=== PATIENT | male | born 1960 | race Caucasian/White ===

== ENCOUNTER 2019-10-09 06:53 | Inpatient (IN) ==
[~2019-10-09 06:53] MED LIST: ceFAZolin 1,000 MG in SYRINGE 1 EACH IV ONE
[2019-10-09] MEDS ORDERED: HEPARIN 5,000 UNIT/1 ML VIAL ONE (07:47)
[2019-10-09] MEDS ORDERED: LACTATED RINGERS 1,000 ML IV SCH (08:00)
[2019-10-09] MEDS ORDERED: ceFAZolin 1,000 MG VIAL ONE (08:10)
[2019-10-09] MEDS ORDERED: LIDOCAINE 2% TOP JELLY 20 ML VIAL INTRAURETH ONE (09:41)
[2019-10-09] MEDS ORDERED: HYDROmorphone 2 MG/1 ML VIAL IV PRN (13:09)
[2019-10-09] MEDS ORDERED: DESFLURANE 1 UNIT/15 MINUTE INH ONE (13:23)
[2019-10-09] MEDS ORDERED: fentaNYL 100 MCG/2 ML VIAL ONE (13:23)
[2019-10-09] MEDS ORDERED: fentaNYL 250 MCG/5 ML VIAL ONE (13:23)
[2019-10-09] MEDS ORDERED: propofoL 200 MG/20 ML VIAL IV ONE (13:23)
[2019-10-09] MEDS ORDERED: PHENYLEPHRINE DRIP 20 MG/250 ML PREMIX IV ONE (13:23)
[2019-10-09] MEDS ORDERED: HEPARIN 10,000 UNIT/10 ML VIAL ONE (13:23)
[2019-10-09] MEDS ORDERED: LIDOCAINE 2% 5 ML VIAL ONE (13:23)
[2019-10-09] MEDS ORDERED: ONDANSETRON 4 MG/2 ML VIAL ONE (13:23)
[2019-10-09] MEDS ORDERED: ROCURONIUM 100 MG/10 ML VIAL IV ONE (13:24)
[2019-10-09] MEDS ORDERED: PHENYLEPHRINE 1 MG/10 ML SYRINGE IV ONE (13:24)
[2019-10-09] MEDS ORDERED: LACTATED RINGERS 1,000 ML IV ONE (13:24)
[2019-10-09] MEDS ORDERED: ETOMIDATE 40 MG/20 ML VIAL IV ONE (13:24)
[2019-10-09] MEDS: LACTATED RINGERS 1,000 ML IV SCH ×3 (14:23→20:47)
[2019-10-09 14:44] LABS: Hematocrit 42.9 VOL% (42.0-52.0); Hemoglobin 14.4 GM/DL (14.0-18.0)
[2019-10-09] MEDS: PROMETHAZINE 25 MG TABLET PO SCH ×2 (16:25→19:57)
[2019-10-09] MEDS: KETOROLAC 10 MG TABLET PO SCH ×2 (16:25→19:55)
[2019-10-10] MEDS: PROMETHAZINE 25 MG TABLET PO SCH ×2 (01:41→08:28)
[2019-10-10] MEDS: KETOROLAC 10 MG TABLET PO SCH ×2 (01:41→08:28)
[2019-10-10 03:19] LABS: Hematocrit 40.3 VOL% (42.0-52.0); Hemoglobin 13.2 GM/DL (14.0-18.0)
[2019-10-10 03:35] LABS: Calcium 8.4 MG/DL (8.5-10.1); Osmolality,Calculated 270.1 MOS/KG (273-304)
[2019-10-10] MEDS: LACTATED RINGERS 1,000 ML IV SCH (06:00)
[2019-10-10 08:39] VITALS: BP 120/71
[2019-10-10] MEDS ORDERED: ASPIRIN EC 81 MG TABLET PO SCH (09:00)
== END 2019-10-10 09:45 | disposition home or self-care (01) | DRG 254 ==
LOC: N.SDSINP 06:53 → N.4E 14:14
PROVIDERS: ADMIT Surgery; ATTEND Surgery

== ENCOUNTER 2020-07-28 07:00 | Inpatient (IN) ==
[2020-07-28] MEDS ORDERED: DEXTROSE 50% 25 GM/50 ML VIAL IV PRN (09:51)
[2020-07-28] MEDS ORDERED: GLUCAGON 1 MG VIAL IM PRN (09:51)
[2020-07-28 11:29] LABS: Allen Test Positive; Pt O2 Delivery Device Room Air
[2020-07-28] MEDS ORDERED: SODIUM CHLORIDE 0.9% 1,000 ML IV SCH (12:00)
[2020-07-28 12:16] LABS: Basophils # 0.1 10*3/uL (0.0-0.2); Basophils % 0.6 % (0.0-0.8); Eosinophils # 0.1 10*3/uL (0.0-0.87); Eosinophils % 1.4 % (0.00-10.9); Hemoglobin 15.3 GM/DL (14.0-18.0); Immature Granulocytes % 0.2 %; Immature Granulocytes Absolute 0.02 #; Lymphocytes # 2.7 10*3/uL (1.4-4.0); Lymphocytes % 30.3 % (21.2-54.2); Mean Corpuscular Volume 87.5 FL (87-102); Mean Platelet Volume 9.8 FL (9.6-12.0); Monocytes % 6.8 % (1.7-12.7); Neutrophils % 60.7 % (38.7-73.9); Platelet Count 316 T/CUMM (130-400); Red Blood Count 5.14 MC/CUMM (3.8-5.5); Red Cell Distribution Width 13.2 % (9.3-17.3); White Blood Count 8.7 T/CUMM (4-12)
[2020-07-28 12:37] LABS: ABG Base Excess 2.1 MMOL/L (-2.5-2.5); ABG HCO3 26.2 MMOL/L (20-26); ABG Oxygen Saturation 96.7 % (95-100); ABG PCO2 42.7 MM HG (35-48); ABG PO2 85.4 MM HG (80-95); ABG TCO2 23.1 MMOL/L (23-27)
[2020-07-28 12:38] LABS: Albumin 3.5 G/DL (3.4-5.0); Bilirubin,Total 0.4 MG/DL (0.2-1.0); Calcium 9.1 MG/DL (8.5-10.1); Osmolality,Calculated 279.4 MOS/KG (273-304); Potassium 3.9 MMOL/L (3.5-5.1); Total Protein 7.2 G/DL (6.4-8.2)
[2020-07-28] MEDS ORDERED: CLORAZEPATE 3.75 MG TABLET PO PRN (13:29)
[2020-07-28] MEDS ORDERED: NITROGLYCERIN SL 0.4 MG TABLET SL PRN (13:38)
[2020-07-28] MEDS ORDERED: MORPHINE 4 MG/1 ML VIAL IV PRN (13:38)
[2020-07-28] MEDS ORDERED: hydrALAZINE 20 MG/1 ML VIAL IV PRN (13:38)
[2020-07-28] MEDS: CHLORHEXIDINE 4% SOLN 118 ML BOTTLE TOP SCH ×2 (18:25→20:55)
[2020-07-28] MEDS: CHLORHEXIDINE 0.12% ORAL RINSE 60 ML BOTTLE SWISH/SPIT SCH (20:55)
[2020-07-29] MEDS ORDERED: VANCOMYCIN 1,000 MG VIAL ONE (04:21)
[2020-07-29] MEDS ORDERED: PAPAVERINE 60 MG/2 ML VIAL ONE (04:21)
[2020-07-29] MEDS ORDERED: VANCOMYCIN 500 MG VIAL ONE (04:21)
[2020-07-29] MEDS ORDERED: CEFUROXIME INJ 1,500 MG in SYRINGE 1 EACH IV ONE (05:00)
[2020-07-29] MEDS ORDERED: ETOMIDATE 40 MG/20 ML VIAL IV ONE (05:30)
[2020-07-29] MEDS ORDERED: SODIUM CHLORIDE 0.9% 1,000 ML IV ONE (05:30)
[2020-07-29] MEDS ORDERED: AMINOCAPROIC ACID 5,000 MG/20 ML VIAL ONE (05:30)
[2020-07-29] MEDS ORDERED: LIDOCAINE 2% 5 ML VIAL ONE ×2 (05:30→11:03)
[2020-07-29] MEDS ORDERED: SODIUM CHLORIDE 0.9% 250 ML IV ONE (05:30)
[2020-07-29] MEDS ORDERED: HEPARIN/NACL 0.9% 2 UNITS/ML 500 ML IV ONE (05:30)
[2020-07-29] MEDS ORDERED: LACTATED RINGERS 1,000 ML IV ONE (05:30)
[2020-07-29] MEDS ORDERED: PHENYLEPHRINE DRIP 20 MG/250 ML PREMIX IV ONE (05:30)
[2020-07-29] MEDS ORDERED: CALCIUM CHLORIDE 1,000 MG/10 ML VIAL IV ONE ×2 (05:30→11:06)
[2020-07-29] MEDS ORDERED: SUFentanil 250 MCG/5 ML AMP ONE ×3 (05:30→05:56)
[2020-07-29] MEDS ORDERED: VECURONIUM 10 MG VIAL IV ONE (05:30)
[2020-07-29] MEDS ORDERED: DIAZEPAM 5 MG TABLET PO ONE (05:35)
[2020-07-29] MEDS ORDERED: ALBUTEROL 2.5 MG/3 ML NEB RESP TX ONE (05:35)
[2020-07-29] MEDS ORDERED: FAMOTIDINE 20 MG TABLET PO ONE (05:35)
[2020-07-29] MEDS ORDERED: MIDAZOLAM 10 MG/2 ML VIAL ONE ×4 (05:47→05:48)
[2020-07-29 07:58] LABS: ABG Base Excess -0.1 MMOL/L (-2.5-2.5); ABG HCO3 24.4 MMOL/L (20-26); ABG PCO2 42.4 MM HG (35-48); ABG PH 7.382 (7.35-7.45); ABG TCO2 21.9 MMOL/L (23-27); Glucose Heart Surgery 114 MG/DL (74-106); Hematocrit Heart Surgery 40.7 PERCENT (42-52); Hemoglobin Heart Surgery 13.3 G/DL (14.0-18.0); Ionized Calcium Arterial 1.16 MMOL/L (1.21-1.46); PCO2 Patient Temp Arterial 42.4 MMHG; PH Patient Temp Arterial 7.382; Patient Temperature 37 CELCIUS; Potassium Heart/CVR 3.9 MMOL/L (3.5-5.1); Sodium Heart/CVR 140 MMOL/L (135-145)
[2020-07-29] MEDS ORDERED: PHENYLEPHRINE DRIP 40 MG/250 ML PREMIX IV ONE (08:01)
[2020-07-29 08:27] LABS: Bilirubin,Urine Negative (Negative); Blood, Urine Negative (Negative); Glucose,Urine (UA) Negative (Negative); Ketones,Urine Negative (Negative); Nitrite,Urine Negative (Negative); Protein,Urine Negative; RBC,Urine 1 /HPF (0-4); Squamous Epithelial Cell,Urine Occasional /HPF (0-10); Urine Appearance CLEAR (Clear); Urine Color Yellow (Yellow); Urine Specific Gravity 1.016 (1.001-1.035); Urine Urobilinogen < 2.0 EU/DL (0.2-1.0); WBC,Urine 1 /HPF (0-6)
[2020-07-29] MEDS ORDERED: HEPARIN 10,000 UNIT/10 ML VIAL ONE ×3 (09:59→11:03)
[2020-07-29] MEDS ORDERED: SEVOFLURANE 1 UNIT/15 MINUTE INH ONE ×8 (10:00→12:23)
[2020-07-29 10:06] LABS: Hemoglobin Heart Surgery 9.6 G/DL (14.0-18.0); PCO2 Patient Temp Venous 35.5 MM HG; PH Patient Temp Venous 7.467; PO2 Patient Temp Venous 36.9 MM HG; VBG Base Excess 1.3 MEQ/L (0-4); VBG HCO3 25.8 MEQ/L (24-28); VBG Oxygen Saturation 79.4 %; VBG PCO2 40.5 MMHG (41-51); VBG PH 7.422; VBG PO2 45.6 MMHG (17-40)
[2020-07-29 10:35] LABS: Hemoglobin Heart Surgery 10.5 G/DL (14.0-18.0); PCO2 Patient Temp Venous 31.6 MM HG; PH Patient Temp Venous 7.492; VBG Base Excess 0.6 MEQ/L (0-4); VBG HCO3 24.1 MEQ/L (24-28); VBG Oxygen Saturation 78.6 %; VBG PCO2 34.5 MMHG (41-51); VBG PH 7.462; VBG PO2 43.7 MMHG (17-40); VBG Total CO2 25.2 MMOL/L
[2020-07-29 10:37] LABS: Potassium Heart/CVR 7.5 MMOL/L (3.5-5.1)
[2020-07-29] MEDS ORDERED: PROTAMINE SULFATE 250 MG/25 ML VIAL IV ONE (11:03)
[2020-07-29] MEDS ORDERED: methylPREDNISolone SOD SUC 1,000 MG/8 ML VIAL ONE (11:03)
[2020-07-29] MEDS ORDERED: DEXTROSE 5% KCL 20 MEQ 20 MEQ/1,000 ML BAG IV ONE (11:03)
[2020-07-29] MEDS ORDERED: MAGNESIUM SULFATE 5 GM/10 ML VIAL IV ONE (11:03)
[2020-07-29] MEDS ORDERED: FUROSEMIDE 20 MG/2 ML VIAL ONE (11:03)
[2020-07-29] MEDS ORDERED: MANNITOL 100 GM/500 ML BAG IV ONE (11:03)
[2020-07-29] MEDS ORDERED: PROTAMINE SULFATE 50 MG/5 ML VIAL IV ONE (11:03)
[2020-07-29] MEDS ORDERED: ALBUMIN 25% 25 GM/100 ML VIAL IV ONE (11:03)
[2020-07-29] MEDS ORDERED: LIDOCAINE 2% TOP JELLY 5 ML TUBE TOP ONE (11:04)
[2020-07-29] MEDS ORDERED: SODIUM BICARBONATE 50 MEQ/50 ML VIAL IV ONE (11:04)
[2020-07-29 11:14] LABS: ABG Base Excess -2.6 MMOL/L (-2.5-2.5); ABG HCO3 22.8 MMOL/L (20-26); ABG Oxygen Saturation 98.6 % (95-100); ABG PCO2 41.6 MM HG (35-48); ABG PH 7.356 (7.35-7.45); ABG PO2 204.9 MM HG (80-95); Glucose Heart Surgery 204 MG/DL (74-106); Hemoglobin Heart Surgery 11.1 G/DL (14.0-18.0); Ionized Calcium Arterial 1.54 MMOL/L (1.21-1.46); PCO2 Patient Temp Arterial 41.6 MMHG; PH Patient Temp Arterial 7.356; PO2 Patient Temp Arterial 204.9 MM HG; Patient Temperature 37 CELCIUS; Potassium Heart/CVR 5.1 MMOL/L (3.5-5.1); Sodium Heart/CVR 129 MMOL/L (135-145)
[2020-07-29] MEDS ORDERED: NITROPRUSSIDE 100 MG in DEXTROSE 5% 250 ML IV PRN (12:03)
[2020-07-29] MEDS ORDERED: SODIUM CHLORIDE 0.45% 1,000 ML IV SCH ×2 (12:03)
[2020-07-29] MEDS ORDERED: MIDAZOLAM 10 MG/2 ML VIAL IV PRN (12:03)
[2020-07-29] MEDS ORDERED: ALBUMIN 5% 12.5 GM in PREMIX 1 EACH IV PRN (12:03)
[2020-07-29] MEDS ORDERED: CALCIUM CHLORIDE 1,000 MG/10 ML SYRINGE IV PRN (12:03)
[2020-07-29] MEDS ORDERED: VECURONIUM 10 MG VIAL IV PRN ×2 (12:03)
[2020-07-29] MEDS ORDERED: MIDAZOLAM 2 MG/2 ML VIAL IV PRN (12:03)
[2020-07-29] MEDS ORDERED: INSULIN REGULAR 100 UNIT/ML IV ONE (12:03)
[2020-07-29] MEDS ORDERED: DEXTROSE 50% 25 GM/50 ML VIAL IV PRN ×2 (12:03)
[2020-07-29] MEDS ORDERED: MORPHINE 4 MG/1 ML VIAL IV PRN (12:03)
[2020-07-29] MEDS ORDERED: MAGNESIUM SULF RIDER 2 GM in PREMIX 1 EACH IV PRN (12:03)
[2020-07-29] MEDS ORDERED: ONDANSETRON 4 MG/2 ML VIAL IV PRN (12:03)
[2020-07-29] MEDS ORDERED: POTASSIUM CHLORIDE RIDER 10 MEQ in PREMIX 1 EACH IV PRN (12:03)
[2020-07-29] MEDS ORDERED: ACETAMINOPHEN 650 MG SUPP RECTAL PRN (12:03)
[2020-07-29] MEDS ORDERED: LACTATED RINGERS 250 ML IV PRN (12:03)
[2020-07-29] MEDS ORDERED: PHENYLEPHRINE DRIP 40 MG/250 ML PREMIX IV PRN (12:03)
[2020-07-29] MEDS ORDERED: MAGNESIUM SULF RIDER 4 GM in PREMIX 1 EACH IV PRN (12:03)
[2020-07-29] MEDS ORDERED: CHLORHEXIDINE 4% SOLN 118 ML BOTTLE TOP PRN (12:03)
[2020-07-29] MEDS ORDERED: MORPHINE 10 MG/1 ML VIAL IV PRN (12:03)
[2020-07-29] MEDS ORDERED: INSULIN REGULAR DRIP 100 ML IV SCH (12:03)
[2020-07-29] MEDS: LACTATED RINGERS 1,000 ML IV PRN ×3 (12:10→14:41)
[2020-07-29 12:18] LABS: ABG Base Excess -1.2 MMOL/L (-2.5-2.5); ABG HCO3 23.4 MMOL/L (20-26); ABG Oxygen Saturation 96.9 % (95-100); ABG PCO2 38.7 MM HG (35-48); ABG PH 7.399 (7.35-7.45); ABG PO2 100.3 MM HG (80-95); ABG TCO2 24.6 MMOL/L (23-27); Glucose Heart Surgery 161 MG/DL (74-106); Potassium Heart/CVR 3.7 MMOL/L (3.5-5.1)
[2020-07-29 12:19] LABS: Basophils % 0.2 % (0.0-0.8); Eosinophils # 0.1 10*3/uL (0.0-0.87); Eosinophils % 0.5 % (0.00-10.9); Hematocrit 33.5 VOL% (42.0-52.0); Hemoglobin 11.2 GM/DL (14.0-18.0); Immature Granulocytes % 0.6 %; Immature Granulocytes Absolute 0.08 #; Lymphocytes # 1.1 10*3/uL (1.4-4.0); Lymphocytes % 8.7 % (21.2-54.2); Mean Corpuscular HGB Conc 33.4 GM/DL (32-36); Mean Corpuscular Volume 89.3 FL (87-102); Mean Platelet Volume 9.7 FL (9.6-12.0); Monocytes % 5.1 % (1.7-12.7); Neutrophils % 84.9 % (38.7-73.9); Platelet Count 204 T/CUMM (130-400); Red Blood Count 3.75 MC/CUMM (3.8-5.5); Red Cell Distribution Width 13.4 % (9.3-17.3)
[2020-07-29] MEDS: CHLORHEXIDINE 4% SOLN 118 ML BOTTLE TOP SCH (12:29)
[2020-07-29 12:33] LABS: INR 1.2; PT Patient Result 12.5 SECS (9.8-11.9); Partial Thromboplastin Time 26.7 SECS (23.9-33.8)
[2020-07-29 12:41] LABS: CKMB % 5.9 %
[2020-07-29] MEDS: POTASSIUM CHLORIDE RIDER 20 MEQ in PREMIX 1 EACH IV PRN ×3 (12:41→22:01)
[2020-07-29] MEDS: NICOTINE 14 MG/24 HR PATCH TRANSDERM SCH (12:46)
[2020-07-29 12:49] LABS: Troponin I 3.78 NG/ML (0.00-0.045)
[2020-07-29 12:51] LABS: Albumin 2.8 G/DL (3.4-5.0); Bilirubin,Total 0.8 MG/DL (0.2-1.0); Calcium 9.6 MG/DL (8.5-10.1); Osmolality,Calculated 285.3 MOS/KG (273-304); Potassium 3.8 MMOL/L (3.5-5.1); Total Protein 5.3 G/DL (6.4-8.2)
[2020-07-29] MEDS: CHLORHEXIDINE 0.12% ORAL RINSE 60 ML BOTTLE SWISH/SPIT SCH ×2 (13:37→20:38)
[2020-07-29 14:06] LABS: ABG Base Excess 1.7 MMOL/L (-2.5-2.5); ABG HCO3 25.9 MMOL/L (20-26); ABG Oxygen Saturation 98.9 % (95-100); ABG PCO2 38.1 MM HG (35-48); ABG PH 7.438 (7.35-7.45); ABG TCO2 22.7 MMOL/L (23-27); Glucose Heart Surgery 142 MG/DL (74-106); Hematocrit Heart Surgery 37.4 PERCENT (42-52); Hemoglobin Heart Surgery 12.2 G/DL (14.0-18.0)
[2020-07-29 18:21] LABS: ABG HCO3 24.4 MMOL/L (20-26); ABG Oxygen Saturation 97.4 % (95-100); ABG PCO2 47.1 MM HG (35-48); ABG PH 7.351 (7.35-7.45); ABG TCO2 23.2 MMOL/L (23-27); Glucose Heart Surgery 175 MG/DL (74-106); Hematocrit Heart Surgery 37.2 PERCENT (42-52); Hemoglobin Heart Surgery 12.1 G/DL (14.0-18.0); Potassium Heart/CVR 4.3 MMOL/L (3.5-5.1)
[2020-07-29] MEDS ORDERED: FUROSEMIDE 40 MG/4 ML VIAL IV PRN (18:28)
[2020-07-29 19:22] LABS: ABG Base Excess -1.2 MMOL/L (-2.5-2.5); ABG HCO3 23.4 MMOL/L (20-26); ABG PCO2 47.1 MM HG (35-48); ABG PH 7.334 (7.35-7.45); ABG TCO2 22.3 MMOL/L (23-27); Glucose Heart Surgery 215 MG/DL (74-106); Hematocrit Heart Surgery 37.7 PERCENT (42-52); Hemoglobin Heart Surgery 12.2 G/DL (14.0-18.0); Potassium Heart/CVR 4.2 MMOL/L (3.5-5.1)
[2020-07-29 20:12] LABS: ABG Base Excess -1.9 MMOL/L (-2.5-2.5); ABG HCO3 22.8 MMOL/L (20-26); ABG Oxygen Saturation 96.4 % (95-100); ABG PCO2 48.5 MM HG (35-48); ABG PH 7.316 (7.35-7.45); ABG PO2 96.4 MM HG (80-95); ABG TCO2 22.1 MMOL/L (23-27); Glucose Heart Surgery 237 MG/DL (74-106); Hematocrit Heart Surgery 38.2 PERCENT (42-52); Hemoglobin Heart Surgery 12.4 G/DL (14.0-18.0)
[2020-07-29 20:21] LABS: CKMB % 3.5 %
[2020-07-29 20:27] LABS: Troponin I 2.63 NG/ML (0.00-0.045)
[2020-07-29] MEDS: CEFUROXIME INJ 1,500 MG in SYRINGE 1 EACH IV SCH (20:38)
[2020-07-29] MEDS: INSULIN REGULAR 100 UNIT/ML IV PRN ×2 (21:14→23:18)
[2020-07-29 21:35] LABS: ABG HCO3 22.1 MMOL/L (20-26); ABG Oxygen Saturation 96.5 % (95-100); ABG PCO2 40.1 MM HG (35-48); ABG PO2 95.2 MM HG (80-95); ABG TCO2 23.4 MMOL/L (23-27); Glucose Heart Surgery 239 MG/DL (74-106); Hemoglobin Heart Surgery 12.5 G/DL (14.0-18.0); Potassium Heart/CVR 3.5 MMOL/L (3.5-5.1)
[2020-07-29 22:23] LABS: ABG Base Excess -3.6 MMOL/L (-2.5-2.5); ABG HCO3 21.4 MMOL/L (20-26); ABG Oxygen Saturation 97.2 % (95-100); ABG PCO2 45.7 MM HG (35-48); ABG PH 7.308 (7.35-7.45); ABG TCO2 20.6 MMOL/L (23-27); Glucose Heart Surgery 242 MG/DL (74-106); Hematocrit Heart Surgery 35.8 PERCENT (42-52); Hemoglobin Heart Surgery 11.6 G/DL (14.0-18.0); Potassium Heart/CVR 4.4 MMOL/L (3.5-5.1)
[2020-07-29 23:12] LABS: ABG Base Excess -3.2 MMOL/L (-2.5-2.5); ABG HCO3 21.7 MMOL/L (20-26); ABG Oxygen Saturation 96.3 % (95-100); ABG PCO2 47.6 MM HG (35-48); ABG PH 7.301 (7.35-7.45); ABG PO2 95.2 MM HG (80-95); ABG TCO2 21.2 MMOL/L (23-27); Glucose Heart Surgery 221 MG/DL (74-106); Hematocrit Heart Surgery 35.1 PERCENT (42-52); Hemoglobin Heart Surgery 11.4 G/DL (14.0-18.0); Potassium Heart/CVR 4.3 MMOL/L (3.5-5.1)
[2020-07-30 04:08] LABS: Basophils % 0.1 % (0.0-0.8); Hematocrit 35.3 VOL% (42.0-52.0); Hemoglobin 11.7 GM/DL (14.0-18.0); Immature Granulocytes % 0.4 %; Immature Granulocytes Absolute 0.08 #; Lymphocytes # 1.2 10*3/uL (1.4-4.0); Lymphocytes % 5.8 % (21.2-54.2); Mean Corpuscular HGB Conc 33.1 GM/DL (32-36); Mean Corpuscular Volume 88.7 FL (87-102); Mean Platelet Volume 10.2 FL (9.6-12.0); Neutrophils % 85.7 % (38.7-73.9); Platelet Count 231 T/CUMM (130-400); Red Blood Count 3.98 MC/CUMM (3.8-5.5); Red Cell Distribution Width 13.4 % (9.3-17.3); White Blood Count 20.4 T/CUMM (4-12)
[2020-07-30 04:10] LABS: ABG Base Excess 4.1 MMOL/L (-2.5-2.5); ABG HCO3 28.1 MMOL/L (20-26); ABG Oxygen Saturation 97.4 % (95-100); ABG PCO2 47.2 MM HG (35-48); ABG PH 7.406 (7.35-7.45); ABG PO2 94.6 MM HG (80-95); ABG TCO2 26.2 MMOL/L (23-27); Glucose Heart Surgery 141 MG/DL (74-106); Hematocrit Heart Surgery 36.7 PERCENT (42-52); Hemoglobin Heart Surgery 11.9 G/DL (14.0-18.0)
[2020-07-30 04:38] LABS: Albumin 3.6 G/DL (3.4-5.0); Bilirubin,Direct 0.17 MG/DL (0.0-0.20); Bilirubin,Total 0.8 MG/DL (0.2-1.0); CKMB % 2.3 %; Calcium 9.1 MG/DL (8.5-10.1); Osmolality,Calculated 286.1 MOS/KG (273-304); Potassium 4.1 MMOL/L (3.5-5.1); Total Protein 6.1 G/DL (6.4-8.2)
[2020-07-30 04:39] LABS: Troponin I 1.92 NG/ML (0.00-0.045)
[2020-07-30 04:45] LABS: Band Neutrophils 9 % (0-10); Hypochromasia 1+; Lymphocytes 7 % (20-55); Microcytosis 1+; Segmented Neutrophils 76 % (50-85); Total Cells Counted 100
[2020-07-30] MEDS: CEFUROXIME INJ 1,500 MG in SYRINGE 1 EACH IV SCH (07:19)
[2020-07-30] MEDS ORDERED: INSULIN REGULAR 100 UNIT/ML SUBCUT SCH (07:30)
[2020-07-30] MEDS: NICOTINE 14 MG/24 HR PATCH TRANSDERM SCH (08:07)
[2020-07-30] MEDS: CHLORHEXIDINE 0.12% ORAL RINSE 60 ML BOTTLE SWISH/SPIT SCH ×3 (08:09→22:35)
[2020-07-30] MEDS ORDERED: GLUCAGON 1 MG VIAL IM PRN ×2 (09:04)
[2020-07-30] MEDS ORDERED: MAGNESIUM SULF RIDER 4 GM in PREMIX 1 EACH IV PRN (09:04)
[2020-07-30] MEDS ORDERED: POTASSIUM CHLORIDE 20 MEQ TABLET PO PRN (09:04)
[2020-07-30] MEDS ORDERED: DEXTROSE 50% 25 GM/50 ML VIAL IV PRN ×2 (09:04)
[2020-07-30] MEDS ORDERED: ZALEPLON 5 MG CAPSULE PO PRN (09:04)
[2020-07-30] MEDS ORDERED: ACETAMINOPHEN 325 MG TABLET PO PRN (09:04)
[2020-07-30] MEDS ORDERED: MAGNESIUM SULF RIDER 2 GM in PREMIX 1 EACH IV PRN (09:04)
[2020-07-30] MEDS ORDERED: oxyCODONE/ACETAMINOPHEN 5-325 MG TABLET PO PRN (09:04)
[2020-07-30] MEDS ORDERED: ONDANSETRON 4 MG/2 ML VIAL IV PRN (09:04)
[2020-07-30] MEDS ORDERED: SODIUM CHLOR 0.45% KCL 20 MEQ 20 MEQ/1,000 ML BAG IV SCH ×2 (09:04→19:30)
[2020-07-30] MEDS ORDERED: ALUMINUM/MAGNES/SIMETH MAX STR 30 ML UDCUP PO PRN (09:04)
[2020-07-30] MEDS: PANTOPRAZOLE 40 MG TABLET PO SCH (09:21)
[2020-07-30] MEDS: ASPIRIN EC 81 MG TABLET PO SCH (09:21)
[2020-07-30] MEDS: DOCUSATE SODIUM 100 MG CAPSULE PO SCH (09:21)
[2020-07-30] MEDS: KETOROLAC 30 MG/1 ML VIAL IV SCH ×3 (09:22→22:21)
[2020-07-30] MEDS: FERROUS SULFATE 325 MG TABLET PO SCH (09:22)
[2020-07-30] MEDS: INSULIN REGULAR 100 UNIT/ML SUBCUT SCH ×3 (11:22→22:34)
[2020-07-30] MEDS: METOPROLOL SUCCINATE XL 25 MG TABLET PO SCH (12:59)
[2020-07-30] MEDS: ALBUTEROL/IPRATROPIUM 3 ML NEB RESP TX SCH ×2 (13:03→20:48)
[2020-07-30] MEDS: MAGNESIUM HYDROXIDE SUSP 30 ML UDCUP PO PRN (14:42)
[2020-07-30] MEDS ORDERED: CEFUROXIME INJ 1,500 MG in SYRINGE 1 EACH IV ONE (19:00)
[2020-07-30] MEDS: ATORVASTATIN 80 MG TABLET PO SCH (22:16)
[2020-07-31] MEDS: ALBUTEROL/IPRATROPIUM 3 ML NEB RESP TX SCH ×4 (02:43→19:31)
[2020-07-31] MEDS: KETOROLAC 30 MG/1 ML VIAL IV SCH ×4 (03:49→20:27)
[2020-07-31 05:56] LABS: Basophils % 0.1 % (0.0-0.8); Hematocrit 32.1 VOL% (42.0-52.0); Hemoglobin 10.6 GM/DL (14.0-18.0); Immature Granulocytes % 0.8 %; Immature Granulocytes Absolute 0.19 #; Lymphocytes % 8.8 % (21.2-54.2); Mean Corpuscular Volume 90.7 FL (87-102); Mean Platelet Volume 11.2 FL (9.6-12.0); Monocytes % 6.8 % (1.7-12.7); Neutrophils % 83.5 % (38.7-73.9); Platelet Count 212 T/CUMM (130-400); Red Blood Count 3.54 MC/CUMM (3.8-5.5); Red Cell Distribution Width 13.7 % (9.3-17.3); White Blood Count 22.7 T/CUMM (4-12)
[2020-07-31] MEDS ORDERED: FUROSEMIDE 40 MG/4 ML VIAL IV ONE (06:00)
[2020-07-31 06:17] LABS: Alanine Aminotransferase 18 U/L (16-61); Albumin 2.9 G/DL (3.4-5.0); Alkaline Phosphatase 53 U/L (45-117); Aspartate Amino Transferase 35 U/L (0-37); Bilirubin,Direct < 0.100 MG/DL (0.0-0.20); Blood Urea Nitrogen 27 MG/DL (7-18); Calcium 8.8 MG/DL (8.5-10.1); Carbon Dioxide 31 MMOL/L (21-32); Estimated Glom Filtration Rate 86 ML/MIN; Glucose 114 MG/DL (74-106); Osmolality,Calculated 282.5 MOS/KG (273-304); Potassium 4.3 MMOL/L (3.5-5.1); Sodium 139 MMOL/L (136-145)
[2020-07-31 06:18] LABS: Anisocytosis 1+; Band Neutrophils 10 % (0-10); Eosinophils 1 % (0-10); Lymphocytes 10 % (20-55); Macrocytosis Slight; Platelet Estimate Normal; Segmented Neutrophils 75 % (50-85); Total Cells Counted 100
[2020-07-31 06:20] LABS: Bilirubin,Indirect 0.4 MG/DL (0.0-1.0); Troponin I 0.879 NG/ML (0.00-0.045)
[2020-07-31] MEDS: MAGNESIUM HYDROXIDE SUSP 30 ML UDCUP PO PRN (08:49)
[2020-07-31] MEDS: EZETIMIBE 10 MG TABLET PO SCH (08:49)
[2020-07-31] MEDS: PANTOPRAZOLE 40 MG TABLET PO SCH (08:50)
[2020-07-31] MEDS: METOPROLOL SUCCINATE XL 25 MG TABLET PO SCH (08:50)
[2020-07-31] MEDS: DOCUSATE SODIUM 100 MG CAPSULE PO SCH (08:50)
[2020-07-31] MEDS: LOSARTAN 25 MG TABLET PO SCH (08:50)
[2020-07-31] MEDS: ASPIRIN EC 81 MG TABLET PO SCH (08:51)
[2020-07-31] MEDS: FERROUS SULFATE 325 MG TABLET PO SCH (08:51)
[2020-07-31] MEDS: INSULIN REGULAR 100 UNIT/ML SUBCUT SCH ×4 (08:54→20:02)
[2020-07-31] MEDS: CHLORHEXIDINE 0.12% ORAL RINSE 60 ML BOTTLE SWISH/SPIT SCH ×2 (08:56→20:29)
[2020-07-31] MEDS: NICOTINE 14 MG/24 HR PATCH TRANSDERM SCH (09:06)
[2020-07-31] MEDS: ASCORBIC ACID 500 MG TABLET PO SCH ×2 (09:11→20:25)
[2020-07-31] MEDS: ATORVASTATIN 80 MG TABLET PO SCH (20:24)
[2020-08-01] MEDS: ALBUTEROL/IPRATROPIUM 3 ML NEB RESP TX SCH ×4 (00:35→19:39)
[2020-08-01] MEDS: KETOROLAC 30 MG/1 ML VIAL IV SCH ×4 (03:59→20:23)
[2020-08-01 06:07] LABS: Basophils % 0.2 % (0.0-0.8); Eosinophils # 0.1 10*3/uL (0.0-0.87); Eosinophils % 0.6 % (0.00-10.9); Hematocrit 33.7 VOL% (42.0-52.0); Immature Granulocytes % 0.4 %; Immature Granulocytes Absolute 0.05 #; Lymphocytes # 2.7 10*3/uL (1.4-4.0); Lymphocytes % 21.3 % (21.2-54.2); Mean Corpuscular HGB Conc 32.6 GM/DL (32-36); Mean Corpuscular Volume 90.6 FL (87-102); Mean Platelet Volume 11.8 FL (9.6-12.0); Neutrophils % 68.5 % (38.7-73.9); Platelet Count 232 T/CUMM (130-400); Red Blood Count 3.72 MC/CUMM (3.8-5.5); Red Cell Distribution Width 13.7 % (9.3-17.3); White Blood Count 12.6 T/CUMM (4-12)
[2020-08-01 06:30] LABS: Alanine Aminotransferase 17 U/L (16-61); Albumin 2.7 G/DL (3.4-5.0); Alkaline Phosphatase 60 U/L (45-117); Aspartate Amino Transferase 31 U/L (0-37); Bilirubin,Indirect 0.3 MG/DL (0.0-1.0); Blood Urea Nitrogen 27 MG/DL (7-18); Calcium 8.6 MG/DL (8.5-10.1); Carbon Dioxide 31 MMOL/L (21-32); Estimated Glom Filtration Rate 86 ML/MIN; Glucose 77 MG/DL (74-106); Osmolality,Calculated 284.3 MOS/KG (273-304); Potassium 3.8 MMOL/L (3.5-5.1); Sodium 141 MMOL/L (136-145); Total Protein 5.9 G/DL (6.4-8.2)
[2020-08-01 06:31] LABS: Troponin I 0.496 NG/ML (0.00-0.045)
[2020-08-01] MEDS ORDERED: POTASSIUM CHLORIDE 20 MEQ TABLET PO ONE (07:32)
[2020-08-01] MEDS: ASCORBIC ACID 500 MG TABLET PO SCH ×2 (08:19→20:22)
[2020-08-01] MEDS: FERROUS SULFATE 325 MG TABLET PO SCH (08:19)
[2020-08-01] MEDS: EZETIMIBE 10 MG TABLET PO SCH (08:20)
[2020-08-01] MEDS: DOCUSATE SODIUM 100 MG CAPSULE PO SCH (08:20)
[2020-08-01] MEDS: NICOTINE 14 MG/24 HR PATCH TRANSDERM SCH (08:20)
[2020-08-01] MEDS: LOSARTAN 25 MG TABLET PO SCH (08:20)
[2020-08-01] MEDS: PANTOPRAZOLE 40 MG TABLET PO SCH (08:20)
[2020-08-01] MEDS: METOPROLOL SUCCINATE XL 25 MG TABLET PO SCH (08:20)
[2020-08-01] MEDS: ASPIRIN EC 81 MG TABLET PO SCH (08:20)
[2020-08-01] MEDS: CHLORHEXIDINE 0.12% ORAL RINSE 60 ML BOTTLE SWISH/SPIT SCH ×2 (08:21→20:26)
[2020-08-01] MEDS: INSULIN REGULAR 100 UNIT/ML SUBCUT SCH ×4 (08:21→20:38)
[2020-08-01] MEDS: ATORVASTATIN 80 MG TABLET PO SCH (20:22)
[2020-08-02] MEDS: ALBUTEROL/IPRATROPIUM 3 ML NEB RESP TX SCH ×4 (00:54→18:48)
[2020-08-02] MEDS: KETOROLAC 30 MG/1 ML VIAL IV SCH (03:22)
[2020-08-02 05:20] LABS: Basophils % 0.3 % (0.0-0.8); Eosinophils # 0.2 10*3/uL (0.0-0.87); Eosinophils % 2.3 % (0.00-10.9); Hematocrit 33.6 VOL% (42.0-52.0); Hemoglobin 11.2 GM/DL (14.0-18.0); Immature Granulocytes % 0.5 %; Immature Granulocytes Absolute 0.05 #; Lymphocytes # 2.2 10*3/uL (1.4-4.0); Lymphocytes % 23.6 % (21.2-54.2); Mean Corpuscular HGB Conc 33.3 GM/DL (32-36); Mean Corpuscular Volume 90.3 FL (87-102); Mean Platelet Volume 11.1 FL (9.6-12.0); Monocytes % 8.6 % (1.7-12.7); Neutrophils % 64.7 % (38.7-73.9); Platelet Count 246 T/CUMM (130-400); Red Blood Count 3.72 MC/CUMM (3.8-5.5); Red Cell Distribution Width 13.5 % (9.3-17.3); White Blood Count 9.2 T/CUMM (4-12)
[2020-08-02 05:50] LABS: Calcium 8.4 MG/DL (8.5-10.1); Osmolality,Calculated 282.3 MOS/KG (273-304); Potassium 4.3 MMOL/L (3.5-5.1)
[2020-08-02] MEDS: EZETIMIBE 10 MG TABLET PO SCH (09:17)
[2020-08-02] MEDS: ASCORBIC ACID 500 MG TABLET PO SCH ×2 (09:17→21:29)
[2020-08-02] MEDS: ASPIRIN EC 81 MG TABLET PO SCH (09:17)
[2020-08-02] MEDS: PANTOPRAZOLE 40 MG TABLET PO SCH (09:18)
[2020-08-02] MEDS: LOSARTAN 25 MG TABLET PO SCH (09:18)
[2020-08-02] MEDS: METOPROLOL SUCCINATE XL 25 MG TABLET PO SCH (09:18)
[2020-08-02] MEDS: FERROUS SULFATE 325 MG TABLET PO SCH (09:19)
[2020-08-02] MEDS: DOCUSATE SODIUM 100 MG CAPSULE PO SCH (09:19)
[2020-08-02] MEDS: CHLORHEXIDINE 0.12% ORAL RINSE 60 ML BOTTLE SWISH/SPIT SCH ×2 (09:21→21:29)
[2020-08-02] MEDS: INSULIN REGULAR 100 UNIT/ML SUBCUT SCH ×4 (10:12→22:22)
[2020-08-02] MEDS: NICOTINE 14 MG/24 HR PATCH TRANSDERM SCH (10:13)
[2020-08-02] MEDS: ATORVASTATIN 80 MG TABLET PO SCH (21:29)
[2020-08-03] MEDS: ALBUTEROL/IPRATROPIUM 3 ML NEB RESP TX SCH ×2 (00:16→07:22)
[2020-08-03 05:12] LABS: Basophils % 0.3 % (0.0-0.8); Eosinophils # 0.3 10*3/uL (0.0-0.87); Eosinophils % 2.6 % (0.00-10.9); Hematocrit 34.9 VOL% (42.0-52.0); Hemoglobin 11.5 GM/DL (14.0-18.0); Immature Granulocytes % 0.5 %; Immature Granulocytes Absolute 0.05 #; Lymphocytes # 2.4 10*3/uL (1.4-4.0); Lymphocytes % 25.3 % (21.2-54.2); Mean Corpuscular Volume 90.2 FL (87-102); Mean Platelet Volume 10.9 FL (9.6-12.0); Monocytes % 8.9 % (1.7-12.7); Neutrophils % 62.4 % (38.7-73.9); Platelet Count 284 T/CUMM (130-400); Red Blood Count 3.87 MC/CUMM (3.8-5.5); Red Cell Distribution Width 13.4 % (9.3-17.3); White Blood Count 9.4 T/CUMM (4-12)
[2020-08-03 05:37] LABS: Eosinophils 3 % (0-10); Hypochromasia Slight; Lymphocytes 25 % (20-55); Microcytosis Slight; Platelet Estimate Adequate; Segmented Neutrophils 62 % (50-85); Total Cells Counted 100
[2020-08-03 05:43] LABS: Alanine Aminotransferase 24 U/L (16-61); Albumin 2.8 G/DL (3.4-5.0); Alkaline Phosphatase 59 U/L (45-117); Aspartate Amino Transferase 18 U/L (0-37); Bilirubin,Indirect 0.4 MG/DL (0.0-1.0); Blood Urea Nitrogen 17 MG/DL (7-18); Calcium 8.7 MG/DL (8.5-10.1); Carbon Dioxide 29 MMOL/L (21-32); Estimated Glom Filtration Rate 97 ML/MIN; Glucose 96 MG/DL (74-106); Osmolality,Calculated 280.4 MOS/KG (273-304); Potassium 4.1 MMOL/L (3.5-5.1); Sodium 140 MMOL/L (136-145); Total Protein 6.2 G/DL (6.4-8.2)
[2020-08-03 05:45] LABS: Troponin I 0.145 NG/ML (0.00-0.045)
[2020-08-03] MEDS: LOSARTAN 25 MG TABLET PO SCH (08:25)
[2020-08-03] MEDS: CHLORHEXIDINE 0.12% ORAL RINSE 60 ML BOTTLE SWISH/SPIT SCH (08:25)
[2020-08-03] MEDS: FERROUS SULFATE 325 MG TABLET PO SCH (08:25)
[2020-08-03] MEDS: DOCUSATE SODIUM 100 MG CAPSULE PO SCH (08:26)
[2020-08-03] MEDS: ASPIRIN EC 81 MG TABLET PO SCH (08:26)
[2020-08-03] MEDS: ASCORBIC ACID 500 MG TABLET PO SCH (08:26)
[2020-08-03] MEDS: EZETIMIBE 10 MG TABLET PO SCH (08:26)
[2020-08-03] MEDS: PANTOPRAZOLE 40 MG TABLET PO SCH (08:26)
[2020-08-03] MEDS: METOPROLOL SUCCINATE XL 25 MG TABLET PO SCH (08:26)
[2020-08-03] MEDS: NICOTINE 14 MG/24 HR PATCH TRANSDERM SCH (08:27)
[2020-08-03] MEDS: INSULIN REGULAR 100 UNIT/ML SUBCUT SCH ×2 (08:27→11:24)
[2020-08-03 11:47] VITALS: BP 105/68
== END 2020-08-03 12:25 | disposition home health service (06) | DRG 236 ==
LOC: N.ADMINP 08:56 → N.4E 10:13 → N.CVR 07-29 11:34 → N.TELES 07-30 13:58

== ENCOUNTER 2020-09-06 06:53 | Inpatient (IN) ==
[2020-08-30 15:00] LABS: Basophils # 0.1 10*3/uL (0.0-0.2); Basophils % 0.7 % (0.0-0.8); Eosinophils # 0.3 10*3/uL (0.0-0.87); Eosinophils % 2.9 % (0.00-10.9); Hematocrit 41.3 VOL% (42.0-52.0); Hemoglobin 13.5 GM/DL (14.0-18.0); Immature Granulocytes % 0.5 %; Immature Granulocytes Absolute 0.04 #; Lymphocytes # 3.3 10*3/uL (1.4-4.0); Lymphocytes % 37.3 % (21.2-54.2); Mean Corpuscular HGB Conc 32.7 GM/DL (32-36); Mean Corpuscular Volume 90.8 FL (87-102); Mean Platelet Volume 10.5 FL (9.6-12.0); Monocytes % 8.6 % (1.7-12.7); Platelet Count 304 T/CUMM (130-400); Red Blood Count 4.55 MC/CUMM (3.8-5.5); Red Cell Distribution Width 14.5 % (9.3-17.3); White Blood Count 8.7 T/CUMM (4-12)
[2020-08-30 15:02] LABS: Calcium 9.4 MG/DL (8.5-10.1); Osmolality,Calculated 280.4 MOS/KG (273-304); Potassium 4.3 MMOL/L (3.5-5.1)
[2020-08-30 15:11] LABS: PT Patient Result 11.5 SECS (10.5-12.0)
[~2020-09-06 06:53] MED LIST changes: -ceFAZolin 1,000 MG in SYRINGE 1 EACH IV ONE; +ceFAZolin 2,000 MG in PREMIX 1 EACH IV ONE
[2020-09-06] MEDS ORDERED: DIAZEPAM 5 MG TABLET ONE (07:31)
[2020-09-06] MEDS ORDERED: FAMOTIDINE 20 MG TABLET ONE (07:32)
[2020-09-06] MEDS ORDERED: DIAZEPAM 5 MG TABLET PO STA (07:33)
[2020-09-06] MEDS ORDERED: FAMOTIDINE 20 MG TABLET PO STA (07:33)
[2020-09-06] MEDS: LACTATED RINGERS 1,000 ML IV SCH ×5 (07:43→22:35)
[2020-09-06] MEDS ORDERED: HEPARIN 5,000 UNIT/1 ML VIAL ONE (08:16)
[2020-09-06] MEDS ORDERED: fentaNYL 100 MCG/2 ML VIAL ONE ×3 (08:54→10:05)
[2020-09-06] MEDS ORDERED: MIDAZOLAM 2 MG/2 ML VIAL ONE (08:54)
[2020-09-06] MEDS ORDERED: MANNITOL 12.5 GM/50 ML VIAL IV ONE (09:22)
[2020-09-06] MEDS ORDERED: FUROSEMIDE 20 MG/2 ML VIAL ONE (10:55)
[2020-09-06] MEDS ORDERED: PROTAMINE SULFATE 50 MG/5 ML VIAL IV ONE (11:37)
[2020-09-06] MEDS ORDERED: PROTAMINE SULFATE 250 MG/25 ML VIAL IV ONE (11:39)
[2020-09-06] MEDS ORDERED: HEPARIN 10,000 UNIT/10 ML VIAL ONE (11:52)
[2020-09-06] MEDS ORDERED: SEVOFLURANE 1 UNIT/15 MINUTE INH ONE (11:52)
[2020-09-06] MEDS ORDERED: GLYCOPYRROLATE 0.4 MG/2 ML VIAL ONE (11:53)
[2020-09-06] MEDS ORDERED: ROCURONIUM 50 MG/5 ML VIAL IV ONE (11:53)
[2020-09-06] MEDS ORDERED: LIDOCAINE 2% 5 ML VIAL ONE (11:53)
[2020-09-06] MEDS ORDERED: ETOMIDATE 40 MG/20 ML VIAL IV ONE (11:53)
[2020-09-06] MEDS ORDERED: ONDANSETRON 4 MG/2 ML VIAL ONE ×2 (11:53→12:32)
[2020-09-06] MEDS ORDERED: NEOSTIGMINE 10 MG/10 ML VIAL ONE (11:54)
[2020-09-06 12:01] LABS: Bilirubin,Urine Negative (Negative); Blood, Urine Negative (Negative); Glucose,Urine (UA) Negative (Negative); Ketones,Urine Negative (Negative); Mucus,Urine Occasional /LPF (Occasional); Nitrite,Urine Negative (Negative); Protein,Urine Negative; RBC,Urine 12 /HPF (0-4); Squamous Epithelial Cell,Urine Occasional /HPF (0-10); Urine Appearance CLEAR (Clear); Urine Color Yellow (Yellow); Urine Specific Gravity 1.021 (1.001-1.035)
[2020-09-06] MEDS ORDERED: ONDANSETRON 4 MG/2 ML VIAL IV PRN ×2 (12:17→12:50)
[2020-09-06] MEDS ORDERED: NALOXONE 0.4 MG/ML VIAL IV PRN (12:21)
[2020-09-06] MEDS ORDERED: HYDROmorphone PCA 30 MG/30 ML SYRINGE IV SCH (12:30)
[2020-09-06] MEDS ORDERED: HYDROmorphone 2 MG/1 ML VIAL ONE (12:32)
[2020-09-06] MEDS ORDERED: HYDROmorphone 2 MG/1 ML VIAL IV PRN (12:50)
[2020-09-06 13:07] LABS: Hematocrit 32.2 VOL% (42.0-52.0); Hemoglobin 10.6 GM/DL (14.0-18.0)
[2020-09-06] MEDS ORDERED: KETOROLAC 30 MG/1 ML VIAL ONE (13:14)
[2020-09-06] MEDS: KETOROLAC 15 MG/1 ML VIAL IV SCH ×2 (13:15→17:36)
[2020-09-06 13:23] LABS: Calcium 7.6 MG/DL (8.5-10.1); Potassium 3.8 MMOL/L (3.5-5.1)
[2020-09-06] MEDS: ALUMINUM/MAGNES/SIMETH MAX STR 30 ML UDCUP PER TUBE SCH ×3 (14:02→21:35)
[2020-09-06] MEDS ORDERED: NITROPRUSSIDE 100 MG in DEXTROSE 5% 246 ML IV PRN (20:14)
[2020-09-06] MEDS: ATORVASTATIN 80 MG TABLET PO SCH (21:35)
[2020-09-07] MEDS: ALUMINUM/MAGNES/SIMETH MAX STR 30 ML UDCUP PER TUBE SCH ×3 (00:32→08:12)
[2020-09-07] MEDS: KETOROLAC 15 MG/1 ML VIAL IV SCH ×4 (00:32→17:55)
[2020-09-07] MEDS: LACTATED RINGERS 1,000 ML IV SCH ×3 (02:18→08:11)
[2020-09-07 05:25] LABS: Basophils % 0.1 % (0.0-0.8); Eosinophils % 0.1 % (0.00-10.9); Hematocrit 29.9 VOL% (42.0-52.0); Hemoglobin 9.8 GM/DL (14.0-18.0); Immature Granulocytes % 0.4 %; Immature Granulocytes Absolute 0.04 #; Lymphocytes # 1.9 10*3/uL (1.4-4.0); Lymphocytes % 18.4 % (21.2-54.2); Mean Corpuscular HGB Conc 32.8 GM/DL (32-36); Mean Corpuscular Volume 89.8 FL (87-102); Platelet Count 184 T/CUMM (130-400); Red Blood Count 3.33 MC/CUMM (3.8-5.5); Red Cell Distribution Width 14.6 % (9.3-17.3); White Blood Count 10.4 T/CUMM (4-12)
[2020-09-07 05:45] LABS: Calcium 8.2 MG/DL (8.5-10.1); Osmolality,Calculated 283.3 MOS/KG (273-304)
[2020-09-07] MEDS: LOSARTAN 25 MG TABLET PO SCH (08:11)
[2020-09-07] MEDS: METOPROLOL SUCCINATE XL 25 MG TABLET PO SCH (08:12)
[2020-09-07] MEDS ORDERED: POTASSIUM CHLORIDE INJ 10 MEQ in LACTATED RINGERS 1,000 ML IV SCH (10:30)
[2020-09-07] MEDS ORDERED: HYDROmorphone PCA 30 MG/30 ML SYRINGE IV SCH (17:30)
[2020-09-07] MEDS: ATORVASTATIN 80 MG TABLET PO SCH (20:58)
[2020-09-08] MEDS: KETOROLAC 15 MG/1 ML VIAL IV SCH ×2 (01:17→05:33)
[2020-09-08 04:26] LABS: Basophils % 0.1 % (0.0-0.8); Hematocrit 29.7 VOL% (42.0-52.0); Hemoglobin 9.6 GM/DL (14.0-18.0); Immature Granulocytes % 0.3 %; Immature Granulocytes Absolute 0.03 #; Lymphocytes # 1.4 10*3/uL (1.4-4.0); Lymphocytes % 13.1 % (21.2-54.2); Mean Corpuscular HGB Conc 32.3 GM/DL (32-36); Mean Corpuscular Volume 91.4 FL (87-102); Mean Platelet Volume 10.8 FL (9.6-12.0); Monocytes % 6.9 % (1.7-12.7); Neutrophils % 79.6 % (38.7-73.9); Platelet Count 169 T/CUMM (130-400); Red Blood Count 3.25 MC/CUMM (3.8-5.5); Red Cell Distribution Width 14.4 % (9.3-17.3)
[2020-09-08] MEDS ORDERED: ENOXAPARIN 40 MG/0.4 ML SYRINGE SUBCUT SCH (08:30)
[2020-09-08] MEDS: LOSARTAN 25 MG TABLET PO SCH (08:40)
[2020-09-08] MEDS: METOPROLOL SUCCINATE XL 25 MG TABLET PO SCH (08:48)
[2020-09-08 15:43] VITALS: BP 109/64
== END 2020-09-08 16:50 | disposition home or self-care (01) | DRG 271 ==
LOC: N.OR 06:53 → N.SDSINP 06:53 → N.CC 13:58 → N.4E 09-07 10:17
PROVIDERS: ADMIT Surgery; ATTEND Surgery